=== PATIENT | male | born 1930 | race Caucasian/White ===

== ENCOUNTER 2017-06-13 16:55 | Emergency (ER) | payer OTHER ==
[~2017-06-13] VITALS: Ht 172.7 cm; Wt 84.8 kg
--- NOTE | ~2017-06-13 | EKG ---
[address] [address] ELECTROCARDIOGRAM REPORT Name: BONNIE JENKINS Room #: [facility] Rachel#: [id number] Admission: 06/13/17 Attend Phys: Discharge: 06/13/17 Date of : 34 Report #: [id number] THIS REPORT FOR: //name// [facility] ED Test Date: 2017-06-13 Test Time: 17:51:23 Pat Name: BONNIE JENKINS Department: Room: Gender: Lacing Operator: [id number] : 1930 Requested By: Jonathon Read Order Number: [id number] MD: Carlos Jorge Measurements Intervals [place] Rate: 86 P: 6 [place]: 160 QRS: -43 QRSD: 97 T: 7 QT: 384 QTc: 460 Interpretive Statements Sinus rhythm Left anterior fascicular block Abnormal R-wave progression, late transition Probable left ventricular hypertrophy Compared to ECG 09/24/2010 06:28:39 Left anterior fascicular block now present Left-axis deviation no longer present Electronically Signed On 06-13-2017 21:21:42 RN RADIATION ONCOLOGY by Carlos Jorge [email or web address] <ELECTRONICALLY SIGNED> By: Carlos Jorge MD 06/13/172120 50 50 Carlos Jorge MD /EPI
[~2017-06-13 16:55] MED LIST: ASPIRIN EC81 M1 PO; HCTZ PO; LIPITOR80 MG PO; NORVASC 2.5 MG2.5 M1 PO; POTASSIUM20 PO; TOPROL XL25 MG PO; TRAMADOL 50 MG50 MG PO; VALACYCLOVIR1000 MG PO; ZETIA10 MG PO
[2017-06-13 17:51] LABS: HEMATOCRIT 41.4 % (42.0-52.0); HEMOGLOBIN 14.1 gm/dL (14.0-18.0); MANUAL DIFF YES; MCH 33.1 pg (26.0-34.0); MCV 97.5 fL (80.0-100.0); PLATELET COUNT 135 thou/uL (150-400); RBC 4.25 mil/uL (4.50-6.00); RDW 14.8 % (10.5-14.5); WBC 9.1 thou/uL (4.0-11.0)
[2017-06-13 18:04] LABS: ANION GAP 10 mmol/L (7-16); BUN 21 mg/dL (7-18); CALCIUM 8.6 mg/dL (8.5-10.1); CHLORIDE 106 mmol/L (98-107); CO2 25 mmol/L (21-32); CREATININE 1.4 mg/dL (0.7-1.3); GLUCOSE 129 mg/dL (74-106); POTASSIUM 4.3 mmol/L (3.5-5.1); SODIUM 141 mmol/L (136-145)
[2017-06-13 18:09] LABS: ABSOLUTE NEUTROPHILS 7.8 thou/uL (1.4-8.2); TOTAL CELL COUNT 100
[2017-06-13 18:12] LABS: ALBUMIN 3.8 g/dL (3.4-5.0); ALKALINE PHOSPHATASE 82 U/L (46-116); SGOT 51 U/L (15-37); SGPT 52 U/L (30-65); TOTAL BILIRUBIN 0.9 mg/dL (<0.1-1.0); TOTAL PROTEIN 6.9 g/dL (6.4-8.2); TROPONIN-I < 0.04 ng/mL (<0.06)
[2017-06-13 19:15] LABS: URINE BILIRUBIN NEGATIVE (Negative); URINE BLOOD TRACE (Negative); URINE COLOR YELLOW; URINE GLUCOSE-RANDOM* NEGATIVE (Negative); URINE KETONES NEGATIVE (Negative); URINE LEUKOCYTES-REFLEX NEGATIVE (Negative); URINE PROTEIN (DIPSTICK) TRACE (Negative); URINE SPECIFIC GRAVITY 1.025 (1.005-1.035); URINE UROBILINOGEN 0.2 E.U./dl (0.2-1.0)
[2017-06-13] MEDS ORDERED: ZOFRAN ODT4 MG PO (19:42)
[2017-06-13 19:56] VITALS: BP 139/82
== END 2017-06-13 19:57 | disposition home or self-care (01) ==
LOC: ER 16:55
PROVIDERS: Emergency Medicine
DX: R11.2 Nausea with vomiting, unspecified (principal); R42 Dizziness and giddiness; Z90.49 Acquired absence of other specified parts of digestive tract; Z86.73 Personal history of transient ischemic attack (TIA), and cerebral infarction without residual deficits

== ENCOUNTER 2019-07-03 16:14 | Emergency (ER) | payer OTHER ==
[~2019-07-03] VITALS: Ht 167.6 cm; Wt 88.0 kg
[~2019-07-03 16:14] MED LIST changes: +ZOFRAN ODT4 MG PO
[2019-07-03 17:44] VITALS: BP 124/70
== END 2019-07-03 17:44 | disposition home or self-care (01) ==
LOC: ER 16:14
DX: J06.9 Acute upper respiratory infection, unspecified (principal); M19.90 Unspecified osteoarthritis, unspecified site; Z90.49 Acquired absence of other specified parts of digestive tract; Z86.73 Personal history of transient ischemic attack (TIA), and cerebral infarction without residual deficits

== ENCOUNTER 2019-09-28 09:55 | Emergency (ER) | payer OTHER ==
[~2019-09-28] VITALS: Ht 172.7 cm; Wt 90.7 kg
[2019-09-28] MEDS ORDERED: LEVO-T25 MCG PO (10:13)
[2019-09-28 11:29] LABS: ABSOLUTE NEUTROPHILS 5.4 thou/uL (1.4-8.2); BASOPHILS 0.5 % (0.0-2.0); EOSINOPHILS 2.6 % (0.0-3.0); HEMATOCRIT 41.5 % (42.0-52.0); LYMPHOCYTES 15.3 % (24.0-44.0); MCHC 33.6 g/dL (28.0-37.0); MCV 101.1 fL (80.0-100.0); MONOCYTES 9.9 % (1.0-8.0); PLATELET COUNT 158 thou/uL (150-400); POLYS 71.7 % (36.0-66.0); RBC 4.11 mil/uL (4.50-6.00); RDW 14.7 % (10.5-14.5); WBC 7.5 thou/uL (4.0-11.0)
[2019-09-28 11:30] LABS: ANION GAP 11 mmol/L (7-16); BUN 23 mg/dL (7-18); CHLORIDE 105 mmol/L (98-107); CO2 24 mmol/L (21-32); CREATININE 1.4 mg/dL (0.7-1.3); GLUCOSE 102 mg/dL (74-106); POTASSIUM 4.6 mmol/L (3.5-5.1); SODIUM 140 mmol/L (136-145)
[2019-09-28 11:40] LABS: ALBUMIN 3.7 g/dL (3.4-5.0); DIRECT BILIRUBIN 0.1 mg/dL (<0.1-0.2); SGOT 21 U/L (15-37); SGPT 24 U/L (30-65); TOTAL PROTEIN 7.3 g/dL (6.4-8.2); TROPONIN-I <0.06 ng/mL (<0.06)
[2019-09-28 13:46] VITALS: BP 130/81
--- NOTE | 2019-09-29 08:54 | EKG ---
[facility] [place] [address] ELECTROCARDIOGRAM REPORT Name: BONNIE JENKINS [id number] Admission: 09/28/19 Attend Phys: Discharge: 09/28/19 Date of : 34 Report #: [id number] THIS REPORT FOR: cc: Florencio Cano David J. DO Lundgren, Craig H. MD [facility] ~ THIS REPORT FOR: //name// [facility] ED Test Date: 2019-09-28 Test Time: 11:23:52 Pat Name: BONNIE JENKINS Department: Room: Gender: Applications Scientist: [facility] : 1930 Requested By: Latrice David Order Number: [id number] MD: Joe White Measurements Intervals [place] Rate: 59 P: 0 SC: 186 QRS: -37 QRSD: 100 T: -10 QT: 441 QTc: 437 Interpretive Statements Sinus bradycardia Left axis deviation Abnormal R-wave progression, early transition Borderline T abnormalities, inferior leads Compared to ECG 06/13/2017 17:51:23 T-wave abnormality now present Electronically Signed On 09-29-2019 8:53:30 CDT by Joe White [email or web address] <ELECTRONICALLY SIGNED> By: Joe White MD, [facility] 09/29/19 0853 1123 1123 Joe White MD, [facility] /EPI
== END 2019-09-28 13:50 | disposition left against medical advice (07) ==
LOC: ER 09:55
PROVIDERS: Emergency Medicine
DX: R55 Syncope and collapse (principal); R42 Dizziness and giddiness; R26.81 Unsteadiness on feet; M19.90 Unspecified osteoarthritis, unspecified site; Z86.73 Personal history of transient ischemic attack (TIA), and cerebral infarction without residual deficits; Z95.1 Presence of aortocoronary bypass graft; Z79.82 Long term (current) use of aspirin; Z79.899 Other long term (current) drug therapy

== ENCOUNTER → 2020-09-22 | Outpatient (CLI) | payer OTHER ==
[~2020-09-22] MED LIST changes: +LEVO-T25 MCG PO
== END ==
LOC: SJCVC 14:11
PROVIDERS: ATTEND Internal Medicine
DX: I49.9 Cardiac arrhythmia, unspecified (principal); I25.10 Atherosclerotic heart disease of native coronary artery without angina pectoris; I10 Essential (primary) hypertension; E78.5 Hyperlipidemia, unspecified; I65.23 Occlusion and stenosis of bilateral carotid arteries; R97.20 Elevated prostate specific antigen [PSA]; E78.00 Pure hypercholesterolemia, unspecified; F41.9 Anxiety disorder, unspecified; Z79.82 Long term (current) use of aspirin; Z79.899 Other long term (current) drug therapy; Z87.891 Personal history of nicotine dependence; Z72.89 Other problems related to lifestyle

== ENCOUNTER → 2020-09-27 | Outpatient (CLI) | payer OTHER | LOC: SJCVCIMAG 14:52 | PROVIDERS: ATTEND Internal Medicine | DX: I08.3 Combined rheumatic disorders of mitral, aortic and tricuspid valves (principal); I11.9 Hypertensive heart disease without heart failure; I65.23 Occlusion and stenosis of bilateral carotid arteries; I25.10 Atherosclerotic heart disease of native coronary artery without angina pectoris; E78.5 Hyperlipidemia, unspecified; R97.20 Elevated prostate specific antigen [PSA]; H40.9 Unspecified glaucoma; E78.00 Pure hypercholesterolemia, unspecified; G43.909 Migraine, unspecified, not intractable, without status migrainosus; I73.9 Peripheral vascular disease, unspecified; F41.9 Anxiety disorder, unspecified; Z79.899 Other long term (current) drug therapy; Z87.891 Personal history of nicotine dependence; Z72.89 Other problems related to lifestyle ==

== ENCOUNTER → 2020-10-03 | Outpatient (CLI) | payer OTHER | LOC: SJCVCIMAG 08:46 | PROVIDERS: ATTEND Internal Medicine | DX: I49.3 Ventricular premature depolarization (principal); I10 Essential (primary) hypertension; E78.5 Hyperlipidemia, unspecified; I25.10 Atherosclerotic heart disease of native coronary artery without angina pectoris; R06.00 Dyspnea, unspecified; I65.23 Occlusion and stenosis of bilateral carotid arteries; R97.20 Elevated prostate specific antigen [PSA]; H40.9 Unspecified glaucoma; E78.00 Pure hypercholesterolemia, unspecified; G43.909 Migraine, unspecified, not intractable, without status migrainosus; I73.9 Peripheral vascular disease, unspecified; F41.9 Anxiety disorder, unspecified; Z87.891 Personal history of nicotine dependence; Z79.82 Long term (current) use of aspirin; Z79.899 Other long term (current) drug therapy; Z95.1 Presence of aortocoronary bypass graft; Z72.89 Other problems related to lifestyle ==

== ENCOUNTER → 2020-10-25 | Outpatient (CLI) | payer OTHER | LOC: MRI 12:10 | PROVIDERS: ATTEND Psychiatry & Neurology Neuromuscular Medicine | DX: I67.82 Cerebral ischemia (principal); F41.9 Anxiety disorder, unspecified; G31.9 Degenerative disease of nervous system, unspecified ==

== ENCOUNTER → 2020-12-06 | Outpatient (CLI) | payer OTHER ==
--- NOTE | 2020-12-08 14:17 | EEG ---
[facility] [place] [address] ELECTROENCEPHALOGRAM Name: BONNIE JENKINS Room #: [facility].#: [id number] Admission: 12/06/20 Attend Phys: Omid Zuñiga MD Discharge: Date of : 34 Report #: [id number] THIS REPORT FOR: //name// DOC #: [id number] Omid Zuñiga MD DATE OF SERVICE: 12/06/2020 This patient is having episodes of memory loss. EEG is being done to evaluate the possibility of seizure. EEG was done by placing the electrode by standard 10-20 system of electrode placement. Both referential and sequential montages were used for recording. Background activity in this patient's EEG is about 9 Hz and 30 microvolt. Photic stimulation is unremarkable. Throughout the record, no active epileptiform activity was noticed. IMPRESSION: This patient's EEG is unremarkable. Thank you very much for this referral. Omid Zuñiga MD PK/PUN <ELECTRONICALLY SIGNED> By: Omid Zuñiga MD 12/08/20 1417 1328 1335 Omid Zuñiga MD /nt
== END ==
LOC: ULTRA 13:04
PROVIDERS: ATTEND Psychiatry & Neurology Neuromuscular Medicine
DX: R41.3 Other amnesia (principal); M79.605 Pain in left leg; M79.604 Pain in right leg; M17.12 Unilateral primary osteoarthritis, left knee

== ENCOUNTER → 2020-12-27 | Outpatient (CLI) | payer OTHER | LOC: SJCVC 14:22 | PROVIDERS: ATTEND Internal Medicine | DX: I25.10 Atherosclerotic heart disease of native coronary artery without angina pectoris (principal); I10 Essential (primary) hypertension; E78.5 Hyperlipidemia, unspecified; I65.23 Occlusion and stenosis of bilateral carotid arteries; I73.9 Peripheral vascular disease, unspecified; R97.20 Elevated prostate specific antigen [PSA]; I34.0 Nonrheumatic mitral (valve) insufficiency; H40.9 Unspecified glaucoma; E78.00 Pure hypercholesterolemia, unspecified; G43.909 Migraine, unspecified, not intractable, without status migrainosus; E07.89 Other specified disorders of thyroid; F41.9 Anxiety disorder, unspecified; Z79.82 Long term (current) use of aspirin; Z79.899 Other long term (current) drug therapy; Z87.891 Personal history of nicotine dependence; Z72.89 Other problems related to lifestyle ==

== ENCOUNTER → 2021-07-05 | Outpatient (CLI) | payer OTHER | LOC: SJCVC 13:11 | PROVIDERS: ATTEND Internal Medicine | DX: I25.10 Atherosclerotic heart disease of native coronary artery without angina pectoris (principal); I10 Essential (primary) hypertension; E78.5 Hyperlipidemia, unspecified; I65.23 Occlusion and stenosis of bilateral carotid arteries; I73.9 Peripheral vascular disease, unspecified; R97.20 Elevated prostate specific antigen [PSA]; F41.9 Anxiety disorder, unspecified; E78.00 Pure hypercholesterolemia, unspecified; H40.9 Unspecified glaucoma; Z87.891 Personal history of nicotine dependence; Z72.89 Other problems related to lifestyle; Z79.899 Other long term (current) drug therapy ==